=== PATIENT | male | born 1950 | race African-American/Black ===

== ENCOUNTER 2017-07-16 12:01 | Emergency (ER) | payer OTHER, BC ==
[2017-07-16] MEDS ORDERED: LIDOCAINE 1% INJ-PF (10 MG/ML) 30 ML SDV INJ ONE (13:03)
--- NOTE | 2017-07-16 13:04 | ER Document Report ---
ED General - General Chief Complaint: Laceration Stated Complaint: RIGHT HAND INJURY Time Seen by Provider: 07/16/17 12:54 Mode of Arrival: Ambulatory Information source: Patient Notes: 66 yr old male presnets with complaints of right thumb injury. Pt denies any weakness, numbness. Pt notes that it was a large laceration from a ladder , repaired at urgent care in [place]. Concern for ligament injury by provider after a partial repair TRAVEL OUTSIDE OF THE [place] IN LAST 30 DAYS: No - HPI Onset: Just prior to arrival Onset/Duration: Sudden Quality of pain: Achy Severity: Mild Pain Level: 1 Associated symptoms: None Exacerbated by: Denies Relieved by: Denies Similar symptoms previously: Yes Recently seen / treated by doctor: Yes - sent from urgent care - Related Data Allergies/Adverse Reactions: No Known Allergies Allergy (Unverified 07/16/17 12:08) Past Medical History - Social History Smoking Status: Never Smoker Cigarette use (# per day): No Chew tobacco use (# tins/day): No Smoking Education Provided: No Family History: Reviewed & Not Pertinent Renal/ Medical History: Denies: Hx Peritoneal Dialysis Review of Systems - Review of Systems Notes: REVIEW OF SYSTEMS: CONSTITUTIONAL : Denies fever, chills, or sweats. Denies recent illness. EENT: Denies eye, ear, throat, or mouth pain or symptoms. Denies nasal or sinus congestion or discharge. Denies throat, tongue, or mouth swelling or difficulty swallowing. CARDIOVASCULAR: Denies chest pain. Denies palpitations or racing or irregular heart beat. Denies ankle edema. RESPIRATORY: Denies cough, cold, or chest congestion. Denies shortness of breath, difficulty breathing, or wheezing. GASTROINTESTINAL: Denies abdominal pain or distention. Denies nausea, vomiting , or diarrhea. Denies blood in vomitus, stools, or per rectum. Denies black, tarry stools. Denies constipation. GENITOURINARY: Denies difficulty urinating, painful urination, burning, frequency, blood in urine, or discharge. MUSCULOSKELETAL: Finger injury SKIN: Laceration HEMATOLOGIC : Denies easy bruising or bleeding. LYMPHATIC: Denies swollen, enlarged glands. NEUROLOGICAL: Denies confusion or altered mental status. Denies passing out or loss of consciousness. Denies dizziness or lightheadedness. Denies headache. Denies weakness or paralysis or loss of use of either side. Denies problems with gait or speech. Denies sensory loss, numbness, or tingling. Denies seizures. PSYCHIATRIC: Denies anxiety or stress. Denies depression, suicidal ideation, or homicidal ideation. ALL OTHER SYSTEMS REVIEWED AND NEGATIVE. Dictation was performed using [employer] voice recognition software PHYSICAL EXAMINATION: GENERAL: Well-appearing, well-nourished and in no acute distress. HEAD: Atraumatic, normocephalic. EYES: Pupils equal round and reactive to light, extraocular movements intact, sclera anicteric, conjunctiva are normal. ENT: Nares patent, oropharynx clear without exudates. Moist mucous membranes. NECK: Normal range of motion, supple without lymphadenopathy LUNGS: Breath sounds clear to auscultation bilaterally and equal. No wheezes rales or rhonchi. HEART: Regular rate and rhythm without murmurs ABDOMEN: Soft, nontender, nondistended abdomen. No guarding, no rebound. No masses appreciated. Musculoskeletal: Normal range of motion, no pitting or edema. No cyanosis. NEUROLOGICAL: Cranial nerves grossly intact. Normal speech, normal gait. Normal sensory, motor exams PSYCH: Normal mood, normal affect. SKIN: Exploration of the wound notes to blood vessels that are protruding from the laceration, laceration measures 9 cm in length around the thumb at the joint space, patient has full range of motion, has complete strength, patient is able to adduct and abduct the digit. Patient has no loss of sensation. There is no active bleeding. 8 sutures have already been placed prior to my evaluation Physical Exam - Vital signs Vitals: Temp Pulse Resp BP Pulse Ox 97.9 F 54 L 18 137/72 H 97 07/16/17 12:08 07/16/17 12:08 07/16/17 12:08 07/16/17 12:08 07/16/17 12:08 Course - Re-evaluation Re-evalutation: 07/16/17 14:09 area was cleansed and explored extensively, there are 2 vessels noted, no bleeding, full rom, full sensation noted. lac was repaired - Vital Signs Vital signs: Temp Pulse Resp BP Pulse Ox 97.9 F 59 L 18 132/70 H 100 07/16/17 15:00 07/16/17 15:00 07/16/17 15:00 07/16/17 15:00 07/16/17 15:00 Procedures - Immobilization Right Thumb Time completed: 14:16 Pre-Proc Neuro Vasc Exam: Normal Immobilizer type: Finger splint (Static) Performed by: PCT Post-Proc Neuro Vasc Exam: Normal Alignment checked and good: Yes - Laceration/Wound Repair Right Thumb Time completed: 14:10 Wound length (cm): 9 Wound's Depth, Shape: Into muscle, Irregular, Flap Laceration pre-procedure: Sterile PPE donned, Sterile drapes applied, Shur- Clens applied Anesthetic type: 1% Lidocaine Volume Anesthetic (mLs): 10 Wound explored: Contaminated Irrigated w/ Saline (mLs): 500 Wound Debrided: Minimal Wound Repaired With: Sutures Suture Size/Type: 4:0 Number of Sutures: 6 Layer Closure?: No Post-procedure wound care: Sterile dressing applied, Splint applied Post-procedure NV exam normal: Yes Complications: No - Additional Procedures digital nerve block Time performed: 13:50 - using 10 cc of lido 1% without epi compelte nerve block performed Discharge - Discharge Clinical Impression: Finger laceration Qualifiers: Encounter type: initial encounter Finger: thumb Damage to nail status: without damage Foreign body presence: without foreign body Laterality: right Qualified Code(s): S61.011A - Laceration without foreign body of right thumb without damage to nail, initial encounter Condition: Stable Disposition: HOME, SELF-CARE Instructions: Laceration Care (OM) Additional Instructions: You have been given a referral to Dr. Tello from the urgent care please follow -up with him for removal of sutures in 7-10 days. Please follow-up call his office Prescriptions: Clindamycin HCl 300 mg PO Q6 #40 capsule Oxycodone HCl/Acetaminophen [Percocet 5-325 mg Tablet] 1 - 2 tab PO Q4H PRN #25 tablet PRN Reason: Referrals: ALONA TELLO DO [ACTIVE STAFF] - Follow up tomorrow
[2017-07-16 15:12] VITALS: BP 132/70
== END 2017-07-16 15:00 | disposition home or self-care (01) ==
LOC: ER 12:01
PROC: 0HQFXZZ Repair Right Hand Skin, External Approach (ICD-10-PCS; principal; 2017-07-16)
DX: S61.011A Laceration without foreign body of right thumb without damage to nail, initial encounter (principal); W45.8XXA Other foreign body or object entering through skin, initial encounter
CPT/HCPCS: 99283; 12004; J3490

== ENCOUNTER → 2020-02-12 | Outpatient (CLI) | payer BC ==
--- NOTE | 2020-02-12 09:31 | RADIOLOGY REPORT (SQ) ---
EXAM DESCRIPTION: CHEST PA/LATERAL COMPLETED DATE/TIME: 02/12/2020 9:23 am REASON FOR STUDY: ABNORMAL ELECTROCARDIOGRAM ECG EKG COMPARISON: None. EXAM PARAMETERS: NUMBER OF VIEWS: two views TECHNIQUE: Digital Frontal and Lateral radiographic views of the chest acquired. RADIATION DOSE: NA LIMITATIONS: none FINDINGS: LUNGS AND PLEURA: No opacities, masses or pneumothorax. No pleural effusion. MEDIASTINUM AND HILAR STRUCTURES: No masses or contour abnormalities. HEART AND VASCULAR STRUCTURES: Heart normal size. No evidence for failure. BONES: No acute findings. HARDWARE: None in the chest. OTHER: No other significant finding. IMPRESSION: NO SIGNIFICANT RADIOGRAPHIC FINDING IN THE CHEST. TECHNICAL DOCUMENTATION: JOB ID: [id number] 2010 [employer]- All Rights Reserved Reading location - IP/workstation name: [email or web address]
[2020-02-12 09:50] LABS: APPEARANCE,URINE CLEAR; BILIRUBIN,URINE NEGATIVE (NEGATIVE); COLOR,URINE YELLOW; GLUCOSE, URINE NEGATIVE (NEGATIVE); KETONES,URINE NEGATIVE (NEGATIVE); LEUKOCYTE ESTERASE,URINE NEGATIVE (NEGATIVE); NITRITE,URINE NEGATIVE (NEGATIVE); PROTEIN,URINE NEGATIVE (NEGATIVE); URINE SPECIFIC GRAVITY 1.023; UROBILINOGEN,URINE NEGATIVE mg/dL (<2.0)
[2020-02-12 09:51] LABS: ABSOLUTE EOSINOPHILS # (AUTO) 0.1 10^3/uL (0.0-0.6); ABSOLUTE LYMPHOCYTES (AUTO) 1.2 10^3/uL (0.5-4.7); ABSOLUTE MONOCYTES (AUTO) 0.5 10^3/uL (0.1-1.4); ABSOLUTE NEUT (AUTO) 4.1 10^3/uL (1.7-8.2); BASOPHILS % (AUTO) 0.7 % (0-2); HEMATOCRIT 34.4 % (37.9-51.0); HEMOGLOBIN 11.8 g/dL (13.5-17.0); LYMPHOCYTES % (AUTO) 20.5 % (13-45); MEAN CORPUSCULAR HEMOGLOBIN 26.9 pg (27.0-33.4); MEAN CORPUSCULAR HGB CONC 34.4 g/dL (32.0-36.0); MEAN CORPUSCULAR VOLUME 78 fl (80-97); MONOCYTES % (AUTO) 8.4 % (3-13); PLATELET COUNT 249 10^3/uL (150-450); RED CELL DISTRIBUTION WIDTH 17.1 % (11.5-14.0); SEGMENTED NEUTROPHILS % (AUTO) 69.4 % (42-78); TOTAL CELLS COUNTED % (AUTO) 100 %; WHITE BLOOD COUNT 5.9 10^3/uL (4.0-10.5)
[2020-02-12 10:11] LABS: ALBUMIN 4.4 g/dL (3.5-5.0); ANION GAP 9 (5-19); BLOOD UREA NITROGEN 26 mg/dL (7-20); C-REACTIVE PROTEIN 5.9 mg/L (<10.0); CALCIUM 9.5 mg/dL (8.4-10.2); CARBON DIOXIDE 28 mmol/L (22-30); CHLORIDE 106 mmol/L (98-107); GLUCOSE 101 mg/dL (75-110); POTASSIUM 4.4 mmol/L (3.6-5.0)
[2020-02-12 10:16] LABS: PREALBUMIN 32.6 mg/dL (17.6-36.0)
[2020-02-12 10:31] LABS: ANISOCYTOSIS 1+; OVALOCYTES 2+; POIKILOCYTOSIS 1+; TEAR DROP CELLS SLIGHT
[2020-02-12 10:32] LABS: PLATELET COMMENT ADEQUATE
[2020-02-12 10:35] LABS: ERYTHROCYTE SEDIMENTATION RATE 12 mm/hr (0-20)
--- NOTE | 2020-02-12 15:37 | EKG REPORT ---
SEVERITY:- BORDERLINE ECG - SINUS RHYTHM BORDERLINE T ABNORMALITIES, INFERIOR LEADS : Confirmed by: Marie Brar MD 12-Feb-2020 15:37:10
== END ==
LOC: OD 08:45
PROVIDERS: ATTEND Orthopaedic Surgery
DX: Z01.818 Encounter for other preprocedural examination (principal); R94.31 Abnormal electrocardiogram [ECG] [EKG]; I10 Essential (primary) hypertension
CPT/HCPCS: 36415; 71046; 80048; 81001; 82040; 82306; 83036; 84134; 85025; 85652; 86140; 93005; 93010

== ENCOUNTER → 2020-03-21 | Outpatient (CLI) | payer BC ==
[2020-03-21 09:08] LABS: C-REACTIVE PROTEIN 6.9 mg/L (<10.0)
== END ==
LOC: OD 07:29
PROVIDERS: ATTEND Orthopaedic Surgery
DX: M54.6 Pain in thoracic spine (principal)
CPT/HCPCS: 36415; 85652; 86038; 86140; 86431; 86812

== ENCOUNTER 2020-05-23 05:34 | Day surgery (SDC) | payer BC, OTHER ==
[2020-05-20 10:53] LABS: ABSOLUTE EOSINOPHILS # (AUTO) 0.1 10^3/uL (0.0-0.6); ABSOLUTE LYMPHOCYTES (AUTO) 1.5 10^3/uL (0.5-4.7); ABSOLUTE MONOCYTES (AUTO) 0.7 10^3/uL (0.1-1.4); ABSOLUTE NEUT (AUTO) 4.9 10^3/uL (1.7-8.2); BASOPHILS % (AUTO) 0.5 % (0-2); EOSINOPHILS % (AUTO) 1.1 % (0-6); HEMATOCRIT 34.1 % (37.9-51.0); HEMOGLOBIN 11.4 g/dL (13.5-17.0); LYMPHOCYTES % (AUTO) 20.8 % (13-45); MEAN CORPUSCULAR HEMOGLOBIN 27.2 pg (27.0-33.4); MEAN CORPUSCULAR HGB CONC 33.4 g/dL (32.0-36.0); MEAN CORPUSCULAR VOLUME 81 fl (80-97); MONOCYTES % (AUTO) 9.9 % (3-13); PLATELET COUNT 239 10^3/uL (150-450); RED BLOOD COUNT 4.19 10^6/uL (4.35-5.55); RED CELL DISTRIBUTION WIDTH 17.6 % (11.5-14.0); SEGMENTED NEUTROPHILS % (AUTO) 67.7 % (42-78); TOTAL CELLS COUNTED % (AUTO) 100 %; WHITE BLOOD COUNT 7.3 10^3/uL (4.0-10.5)
[2020-05-20 11:14] LABS: BLOOD UREA NITROGEN 19 mg/dL (7-20); CALCIUM 9.2 mg/dL (8.4-10.2); CARBON DIOXIDE 30 mmol/L (22-30); CHLORIDE 106 mmol/L (98-107); GLUCOSE 100 mg/dL (75-110); POTASSIUM 4.4 mmol/L (3.6-5.0)
[2020-05-20 11:26] LABS: ANION GAP 4 (5-19)
--- NOTE | 2020-05-21 00:25 | EKG REPORT ---
SEVERITY:- BORDERLINE ECG - SINUS BRADYCARDIA BORDERLINE T ABNORMALITIES, INFERIOR LEADS : Confirmed by: Brian Arroyo 21-May-2020 00:24:39
[~2020-05-23 05:34] MED LIST: ACETAMINOPHEN 325 MG TABLET PO PRN; CEFAZOLIN 2 GM/D5W RTU 2 GM/50 ML RTUPB IV PRN; CELECOXIB 200 MG CAPSULE PO PRN; GABAPENTIN 100 MG CAPSULE PO PRN; LACTATED RINGERS 1000 ML IV PRN; LIDOCAINE 0.5% INJ-PF (5 MG/ML) 50 ML SDV SUBCUT PRN; ONDANSETRON HCL INJ/PF 4 MG/2 ML SDV IV PRN; OXYCODONE HCL SR 10 MG TABLET PO PRN; SCOPOLAMINE HYDROBROMIDE 1.5 MG PATCH.TD72 TD PRN; TRAMADOL HCL 50 MG TABLET PO PRN; TRANEXAMIC ACID INJ/PF 1,000 MG/10 ML SDV IV PRN; VANCOMYCIN HCL 1,000 MG in DEXTROSE 5%-WATER 250 ML IV PRN
[2020-05-23] MEDS ORDERED: CEFAZOLIN 2 GM/D5W RTU 2 GM/50 ML RTUPB IV ONE (05:55)
[2020-05-23] MEDS ORDERED: ACETAMINOPHEN 325 MG TABLET ONE (05:55)
[2020-05-23] MEDS ORDERED: CELECOXIB 200 MG CAPSULE ONE (05:55)
[2020-05-23] MEDS ORDERED: OXYCODONE HCL SR 10 MG TABLET PO ONE (05:56)
[2020-05-23] MEDS ORDERED: SCOPOLAMINE HYDROBROMIDE 1.5 MG PATCH.TD72 ONE (05:56)
[2020-05-23] MEDS ORDERED: GABAPENTIN 100 MG CAPSULE ONE (05:56)
[2020-05-23] MEDS ORDERED: TRAMADOL HCL 50 MG TABLET ONE (05:57)
[2020-05-23] MEDS ORDERED: MIDAZOLAM 2 MG/2 ML INJ ONE (06:51)
[2020-05-23] MEDS ORDERED: FENTANYL CITRATE INJ/PF 100 MCG/2 ML AMPUL ONE (06:51)
[2020-05-23] MEDS ORDERED: KETAMINE HCL INJ 500 MG/10 ML VIAL ONE (06:51)
[2020-05-23] MEDS ORDERED: ONDANSETRON HCL INJ/PF 4 MG/2 ML SDV ONE (06:52)
[2020-05-23] MEDS ORDERED: PROPOFOL INJ 200 MG/20 ML VIAL IV ONE (06:52)
[2020-05-23] MEDS ORDERED: TRANEXAMIC ACID INJ/PF 1,000 MG/10 ML SDV ONE (06:52)
[2020-05-23] MEDS ORDERED: LIDOCAINE 1% INJ-PF (10 MG/ML) 30 ML SDV ONE ×2 (06:54→07:11)
[2020-05-23] MEDS ORDERED: VANCOMYCIN HCL INJ 1000 MG VIAL ONE (07:11)
[2020-05-23] MEDS ORDERED: KETOROLAC TROMETHAMINE INJ/PF 30 MG/1 ML SDV ONE (07:11)
[2020-05-23] MEDS ORDERED: BUPIVACAINE HCL 0.25 % INJ/PF (2.5 MG/1 ML) 30 ML VIAL ONE (07:11)
[2020-05-23] MEDS ORDERED: MORPHINE SULFATE 10 MG/ML INJ IV PRN ×2 (07:59→12:49)
[2020-05-23] MEDS ORDERED: PROMETHAZINE HCL INJ 25 MG/1 ML VIAL IV PRN (07:59)
[2020-05-23] MEDS ORDERED: FENTANYL CITRATE INJ/PF 100 MCG/2 ML AMPUL IV PRN ×3 (07:59)
[2020-05-23] MEDS ORDERED: MEPERIDINE HCL/PF INJ 25 MG/1 ML DISP.SYRIN IV PRN (07:59)
[2020-05-23] MEDS ORDERED: DIPHENHYDRAMINE HCL 50 MG/ML VIAL IV PRN (07:59)
--- NOTE | 2020-05-23 10:50 | RADIOLOGY REPORT (SQ) ---
EXAM DESCRIPTION: KNEE RIGHT 2 VIEWS IMAGES COMPLETED DATE/TIME: 05/23/2020 10:38 am REASON FOR STUDY: Post TKR M17.12 UNILATERAL PRIMARY OSTEOARTHRITIS, LEFT KNEE COMPARISON: None. NUMBER OF VIEWS: Three views. TECHNIQUE: AP and lateral radiographic images acquired of the right knee. LIMITATIONS: None. FINDINGS: MINERALIZATION: Normal. BONES: The patient is status post total knee arthroplasty. Osseous mineralization and alignment are otherwise normal. JOINT: Intra-articular gas is not an unexpected finding in the immediate postsurgical setting. SOFT TISSUES: Subcutaneous gas is not an unexpected finding in the immediate postsurgical setting. OTHER: No other significant finding. IMPRESSION: Status post total knee arthroplasty with expected postsurgical findings. TECHNICAL DOCUMENTATION: JOB ID: [id number] 2010 [employer]- All Rights Reserved Reading location - IP/workstation name: [email or web address]
--- NOTE | 2020-05-23 10:57 | Operative Report ---
Operative Report DATE OF SURGERY: 05/23/20 PREOPERATIVE DIAGNOSIS: Right knee end-stage osteoarthritis, primary POSTOPERATIVE DIAGNOSIS: End-stage right knee primary osteoarthritis OPERATION: Right total knee arthroplasty SURGEON: IRVIN ROSE JR ANESTHESIA: Spinal COMPLICATIONS: none ESTIMATED BLOOD LOSS: 20cc PROCEDURE: Components: Anderson Triathlon Total knee: 6 PS femur, 7 x 11 tibia, and a 40 asymmetric patella OPERATIVE PROCEDURE: Patient was brought to the operating room and spinal anesthesia was administered. After proper anesthesia was obtained, patient was positioned, padded, prepped, and draped in the usual sterile fashion on the operating room table. 2 g of Ancef and 1 g of vancomycin were given. Appropriate time out was performed. Anterior incision and medial-parapatella approach was performed. Severe degenerative arthritis was noted. Osteophytes were removed from the femur and tibia, and the remainder of the ACL and PCL were removed. The proximal tibia was then prepared and cut perpendicular to the tibial shaft axis and measured to a 7 tibia. The distal femur was drilled, the canal was irrigated and the distal femoral guide was placed. The distal femur was cut 11 mm to 5 degrees of varus. An extension 10 block was placed in the gap was found to be appropriate. The tensor was placed in extension and the extension gap was balanced with releases until the goniometer on the tensor measured to 0. The tensor was placed in flexion and the femur was sized to 6. Drill holes were placed to the appropriate femoral rotation. The 4 and 1 block was placed and the flexion gap was then re-checked with the tensor adapter and found to be appropriate. Anterior-posterior and chamfer cuts were made. Posterior osteophytes were removed. The femoral trial was then placed, and the notch was cut. The combination of the tibial baseplate and the 9 mm polyethylene liner were then placed and the knee was taken through a range of motion with the trials in. This had excellent balance in extension and flexion as well as patellar tracking. The patella AP aspect was measured to 30 mm and the patella was cut parallel to the anterior patella surface. A 40 mm button was placed medially and superiorly as possible and the patella-button construct again measured 30 mm. This was again taken through a range of motion and found to have excellent balance with slight laxity in extension. We then trialed again with an 11 poly- and found this to be excellent with full extension and flexion. The rotation of the tibia baseplate was marked, the tibial was anteriorly subluxed and the tibial component was pinned and drilled and punched. All the trials were then removed and the wound was copiously irrigated with sterile saline followed by a Betadine soak. After pulsatile irrigation of the darlyn and soft tissue surfaces, the darlny surfaces were cleaned and dried, and cementation of the femur, tibia, and patella was performed. All excess cement was thoroughly removed. The knee was placed in slight flexion until cement cured. Periarticular injection with Lidocaine, Marcaine and Toradol was performed. The knee was irrigated copiously. A gram of Vancomycin was placed intra-articularly. The extensor mechanism was closed with 0 vicryl tacking sutures and number 2 Stratofix. The subcutaneous tissue was closed with 2-0 monocryl and the skin closed with 3-0 running monocryl. A silver dressing was applied. All needle sponge and instrument counts were correct. Patient was awakened from sedation anesthesia and taken to recovery room in good condition. Irvin Rose DO
--- NOTE | 2020-05-23 12:34 | Discharge Summary ---
Discharge Summary (SDC) - Discharge Final Diagnosis: Right total knee arthroplasty Date of Surgery: 05/23/20 Discharge Date: 05/23/20 Condition: Stable Treatment or Instructions: Right total knee arthroplasty Full details of postoperative instructions have been provided to the patient in the clinic. Additionally they should maintain their bandage in place for 5 to 7 days, and then changed to a dry dressing. They can take showers with this occlusive dressing but any further dressing should also be occlusive. No showers with the wound unprotected until cleared by me in the clinic. If the bandage falls off early or become saturated they can change as needed to another occlusive dressing. Referrals: LIANET KAPLAN MD [Primary Care Provider] - Discharge Diet: As Tolerated, Diabetic Respiratory Treatments at Home: Deep Breathing/Coughing Discharge Activity: Activity As Tolerated, No Driving, Keep Legs Elevated, No Lifting/Push/Pulling, Slowly Increase Activity, No tub bath, Walk Frequently Activities Provided by Home Health Agency: Physical Therapy Adaptive Devices on Discharge: Addis Fosse Report the Following to Your Physician Immediately: Shortness of Breath, Fever over 101 Degrees, Unusual Bleeding, Drainage-Yellow
[2020-05-23] MEDS ORDERED: OXYCODONE HCL IR 5 MG TABLET PO PRN ×2 (12:48)
[2020-05-23] MEDS ORDERED: TRAMADOL HCL 50 MG TABLET PO PRN (12:49)
[2020-05-23] MEDS ORDERED: PANTOPRAZOLE SODIUM 20 MG TABLET.DR PO PRN (12:54)
[2020-05-23] MEDS ORDERED: DIPHENHYDRAMINE HCL 25 MG CAPSULE PO PRN (12:54)
[2020-05-23] MEDS ORDERED: DOCUSATE SODIUM 100 MG CAPSULE PO PRN (12:55)
[2020-05-23] MEDS ORDERED: ZOLPIDEM TARTRATE 5 MG TABLET PO PRN (12:55)
[2020-05-23] MEDS ORDERED: ONDANSETRON 4 MG TAB.RAPDIS PO PRN (12:56)
[2020-05-23] MEDS ORDERED: NORMAL SALINE 1000 ML 1,000 ML IV PRN (12:56)
[2020-05-23] MEDS ORDERED: ACETAMINOPHEN 325 MG TABLET PO SCH (14:00)
[2020-05-23] MEDS ORDERED: CEFAZOLIN SODIUM 2 GM in DEXTROSE 5%-WATER 100 ML IV SCH (14:00)
[2020-05-23 15:14] VITALS: BP 146/75
[2020-05-23] MEDS ORDERED: KETOROLAC TROMETHAMINE INJ/PF 30 MG/1 ML SDV IV SCH (18:00)
[2020-05-23] MEDS ORDERED: GABAPENTIN 100 MG CAPSULE PO SCH (18:00)
[2020-05-24] MEDS ORDERED: POLYETHYLENE GLYCOL 3350 POWDER 17 GM/1 PACKET PO SCH (10:00)
[2020-05-24] MEDS ORDERED: ASPIRIN 325 MG TABLET PO SCH (10:00)
[2020-05-24] MEDS ORDERED: CELECOXIB 200 MG CAPSULE PO SCH (10:00)
== END 2020-05-23 16:00 | disposition home or self-care (01) ==
LOC: OROUT 05:34 → 4N 11:55 → OROUT 16:00
PROVIDERS: ATTEND Orthopaedic Surgery
DX: Z79.899 Other long term (current) drug therapy (principal); M17.11 Unilateral primary osteoarthritis, right knee; M25.561 Pain in right knee; I10 Essential (primary) hypertension
CPT/HCPCS: 27447; 93005; 86900; 86901; 36415 ×2; 86850; 84132; 85025; 87635; 80048; 73560; 93010; 97530; 97110; 97116; 97162; 97535; 97165; J2250; J0690 ×2; J3010; J3490 ×2; J1885; J2405; J7060 ×2; J2704; J3370; C9803; 01402

== ENCOUNTER 2020-11-13 11:40 | Day surgery (SDC) | payer BC ==
[2020-11-07 12:47] LABS: ANION GAP 6 (5-19); BLOOD UREA NITROGEN 23 mg/dL (7-20); CALCIUM 9.4 mg/dL (8.4-10.2); CARBON DIOXIDE 30 mmol/L (22-30); CHLORIDE 107 mmol/L (98-107); GLUCOSE 95 mg/dL (75-110); MEAN CORPUSCULAR HEMOGLOBIN 25.3 pg (27.0-33.4); MEAN CORPUSCULAR HGB CONC 33.3 g/dL (32.0-36.0); MEAN CORPUSCULAR VOLUME 76 fl (80-97); PLATELET COUNT 294 10^3/uL (150-450); POTASSIUM 4.9 mmol/L (3.6-5.0); RED BLOOD COUNT 4.35 10^6/uL (4.35-5.55); WHITE BLOOD COUNT 5.9 10^3/uL (4.0-10.5)
[2020-11-07 13:19] LABS: RED CELL DISTRIBUTION WIDTH 19.5 % (11.5-14.0)
--- NOTE | 2020-11-08 13:24 | EKG REPORT ---
SEVERITY:- BORDERLINE ECG - SINUS RHYTHM BORDERLINE T ABNORMALITIES, INFERIOR LEADS : Confirmed by: Brian Arroyo 08-Nov-2020 13:23:41
[~2020-11-13 11:40] MED LIST changes: -ACETAMINOPHEN 325 MG TABLET PO PRN; -CELECOXIB 200 MG CAPSULE PO PRN; -GABAPENTIN 100 MG CAPSULE PO PRN; -ONDANSETRON HCL INJ/PF 4 MG/2 ML SDV IV PRN; -OXYCODONE HCL SR 10 MG TABLET PO PRN; -SCOPOLAMINE HYDROBROMIDE 1.5 MG PATCH.TD72 TD PRN; -TRAMADOL HCL 50 MG TABLET PO PRN; -TRANEXAMIC ACID INJ/PF 1,000 MG/10 ML SDV IV PRN; -VANCOMYCIN HCL 1,000 MG in DEXTROSE 5%-WATER 250 ML IV PRN
[2020-11-13] MEDS ORDERED: CEFAZOLIN 2 GM/D5W RTU 2 GM/50 ML RTUPB IV ONE (12:36)
[2020-11-13] MEDS ORDERED: COCAINE HCL 4% TOPICAL SOLN 4 ML ONE (14:18)
[2020-11-13] MEDS ORDERED: TRIAMCINOLONE ACETONIDE INJ 40 MG/1 ML VIAL ONE (14:18)
[2020-11-13] MEDS ORDERED: OXYMETAZOLINE HCL 0.05% NASAL SPRAY 15 ML BOTTLE ONE (14:18)
[2020-11-13] MEDS ORDERED: FENTANYL CITRATE INJ/PF 100 MCG/2 ML AMPUL ONE (14:33)
[2020-11-13] MEDS ORDERED: HYDROMORPHONE HCL INJ/PF 2 MG/ML AMPULE ONE (14:33)
[2020-11-13] MEDS ORDERED: LIDOCAINE 2% INJ-PF (20 MG/ML) 10 ML AMPUL ONE (14:33)
[2020-11-13] MEDS ORDERED: DEXAMETHASONE SOD PHOSPHATE INJ 4 MG/1 ML VIAL ONE (14:34)
[2020-11-13] MEDS ORDERED: ONDANSETRON HCL INJ/PF 4 MG/2 ML SDV ONE (14:34)
[2020-11-13] MEDS ORDERED: MIDAZOLAM 2 MG/2 ML INJ ONE (14:34)
[2020-11-13] MEDS ORDERED: PROPOFOL INJ 200 MG/20 ML VIAL IV ONE (14:34)
[2020-11-13] MEDS ORDERED: NEOSTIGMINE METHYLSULFATE 10 MG/10 ML VIAL ONE (14:54)
[2020-11-13] MEDS ORDERED: GLYCOPYRROLATE 1 MG/5 ML VIAL ONE (14:54)
[2020-11-13] MEDS ORDERED: PROMETHAZINE HCL INJ 25 MG/1 ML VIAL IV PRN ×2 (15:21)
[2020-11-13] MEDS ORDERED: MORPHINE SULFATE 10 MG/ML INJ IV PRN (15:21)
[2020-11-13] MEDS ORDERED: FENTANYL CITRATE INJ/PF 100 MCG/2 ML AMPUL IV PRN ×3 (15:21)
[2020-11-13] MEDS ORDERED: OXYCODONE-ACETAMINOPHEN 5-325 MG TABLET PO PRN ×2 (15:21)
[2020-11-13] MEDS ORDERED: DIPHENHYDRAMINE HCL 50 MG/ML VIAL IV PRN (15:21)
[2020-11-13] MEDS ORDERED: MEPERIDINE HCL/PF INJ 25 MG/1 ML DISP.SYRIN IV PRN (15:21)
--- NOTE | 2020-11-13 16:02 | Operative Report ---
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 Patient states that he has had 2 previous laryngeal surgeries to remove a vocal cord mass. Presents today for a [facility] laryngoscopy with excisional biopsy left true vocal cord mass. 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 Micro Direct Laryngoscopy 2. Excisional biopsy left true vocal cord mass Surgeon: Sanjay Bolden MD, FACS, [facility] AVIVA Description of the procedure: After receiving informed consent, the patient was brought to the operating room and placed supine on the operating room table. After successful induction and intubation by anesthesia, the operating room table was turned 90. A head rape was placed. The patient was placed in a sniffing position. A mouthguard was placed to protect the dentition. An operating laryngoscope, Natalia, was placed atraumatically into the laryngeal inlet. The laryngoscope was then placed into suspension. The microscope was brought into the field and the larynx was visualized. A verrucous, exophytic, whitish mass was attached to the medial surface of the left true vocal cord. Cottonoids soaked in 4% cocaine were placed into the laryngeal inlet to cover the vocal cords, prior to initiation of the procedure. Micro forceps were used to grasp the left true vocal cord mass and pull it media lly. Microscissors were then used to excise the mass from the left true vocal cord. The mass was removed in toto. Inspection of the surgical area did not reveal evidence of residual mass. The mass was completely excised. A cottonoid soaked in 4% cocaine was placed over the excision site. Hemostasis was obtained. The patient was taken out of suspension and the laryngoscope removed. The patient was then given back to anesthesia who successfully extubated the patient without any complications. Estimated blood loss: Minimal Fluids: 800 mL The patient tolerated the procedure well without any complications. The patient was then transported to the post anesthesia care unit in stable condition with spontaneous respirations.
[2020-11-13] MEDS ORDERED: HYDROCODONE/ACETAMINOPHEN 5-325 MG TABLET PO PRN (16:03)
[2020-11-13] MEDS ORDERED: ONDANSETRON HCL INJ/PF 4 MG/2 ML SDV IV PRN (16:04)
[2020-11-13] MEDS ORDERED: DEXAMETHASONE SOD PHOSPHATE INJ 4 MG/1 ML VIAL NEB PRN (16:06)
[2020-11-13] MEDS ORDERED: DEXAMETHASONE SOD PHOS INJ 10 MG/1 ML VIAL ONE (16:11)
[2020-11-13] MEDS ORDERED: OXYCODONE-ACETAMINOPHEN 5-325 MG TABLET ONE (16:22)
[2020-11-13 18:03] VITALS: BP 172/90
== END 2020-11-13 17:44 | disposition home or self-care (01) ==
LOC: OROUT 11:40
PROVIDERS: ATTEND Otolaryngology
DX: J38.3 Other diseases of vocal cords (principal); K21.9 Gastro-esophageal reflux disease without esophagitis; R13.10 Dysphagia, unspecified; H69.83 Other specified disorders of Eustachian tube, bilateral; I10 Essential (primary) hypertension; M19.90 Unspecified osteoarthritis, unspecified site; Z20.828 Contact with and (suspected) exposure to other viral communicable diseases; Z79.899 Other long term (current) drug therapy; Z79.82 Long term (current) use of aspirin
CPT/HCPCS: 93005; 36415 ×2; 84132; 85027; 80048; 88305 ×2; 93010; 31536; U0003; C9046; J1100 ×2; J3010; J2710; J2405; J2704; J3490 ×2; J0690; C9803; 320; 87635; J1170; J2250; J3301